=== PATIENT | male | born 1965 | race Two or more races ===

== ENCOUNTER → 2025-07-19 | Outpatient (CLI) | payer OTHER, MEDICAID, SELFPAY ==
--- NOTE | 2025-07-19 09:15 | XR_ITS ---
EXAMINATION: Ultrasound abdominal aorta Date and time: July 19, 2025, 0851 hours INDICATIONS: Smoking history 6 years, nicotine dependence TECHNIQUE AND FINDINGS: Grayscale sonographic images abdominal aorta Transverse dimension proximal aorta 2.0 cm mid aorta 1.2 cm distal aorta 1.1 cm right iliac 0.8 cm left iliac 0.9 cm IMPRESSION: Negative for abdominal aortic aneurysm
== END | disposition home or self-care (01) ==
PROVIDERS: PCP Family Medicine; Referring Provider Internal Medicine; Visit Provider Internal Medicine
DX: F17.210 Nicotine dependence, cigarettes, uncomplicated (principal)
CPT/HCPCS: 76770

== ENCOUNTER → 2025-07-31 | Outpatient (CLI) | payer OTHER, MEDICAID, SELFPAY ==
--- NOTE | 2025-07-31 07:30 | XR_ITS ---
Examination: CT lung low dose screening, without contrast. 2-D sagittal reconstructions. 2-D coronal reconstructions. 3-D reconstructions. Date and time of exam: July 31, 2025, 0738 hours, comparison February 28, 2019 INDICATION: Nicotine dependence, smoking history 5 years, CT study July 01, 2019 11 mm nodule spiculated margins lingular segment CTDI: vol (mGy): 15.4 DLP: (mGycm): 565 Technique: Multiple 1.25 mm axial sections of the lung low dose screening have been obtained. 2-D sagittal and coronal reconstructions have been obtained. 3-D reconstructions have been obtained. Low dose protocols were performed. One or more of the following dose reduction techniques were used; automated exposure control, adjustment of the mA and/or KV according to patient size, use of iterative reconstruction technique. Findings: Thoracic aortic calcification no aneurysmal dilatation Pulmonary artery segments are not enlarged Heavy calcification left anterior descending coronary artery Mild enlargement cardiac contour Stellate density in the anterior segment left upper lobe, probably scar formation, 9 mm, axial image 140 Atelectasis in the lingular segment and left lower lobe, mild No visualized liver or splenic lesions Gallstones No pancreatic or adrenal mass IMPRESSION: Recommend 1 continued 6-month follow-up CT chest without contrast to document stability of 9 mm stellate density anterior segment left upper lobe
== END | disposition home or self-care (01) ==
LOC: CCTX 06:58
PROVIDERS: PCP Family Medicine; Referring Provider Internal Medicine; Visit Provider Internal Medicine
DX: J98.4 Other disorders of lung (principal)
CPT/HCPCS: 71271